=== PATIENT | female | born 1990 | race African-American/Black ===

== ENCOUNTER 2018-01-23 15:54 | Emergency (ER) | payer OTHER ==
[~2018-01-23] VITALS: Ht 167.6 cm; Wt 99.8 kg
[2018-01-23] MEDS ORDERED: NAPROSYN500 MG PO (17:30)
[2018-01-23] MEDS ORDERED: NORFLEX100 MG PO (17:30)
[2018-01-23 17:46] VITALS: BP 120/69
== END 2018-01-23 17:47 | disposition home or self-care (01) ==
LOC: ER 15:54
DX: S39.012A Strain of muscle, fascia and tendon of lower back, initial encounter (principal); S16.1XXA Strain of muscle, fascia and tendon at neck level, initial encounter; V89.2XXA Person injured in unspecified motor-vehicle accident, traffic, initial encounter; Y93.89 Activity, other specified; Y92.89 Other specified places as the place of occurrence of the external cause; Y99.8 Other external cause status